=== PATIENT | male | born 1970 | race Caucasian/White ===

== ENCOUNTER 2017-10-04 00:21 | Inpatient (IN) | payer OTHER ==
[~2017-10-04] VITALS: Ht 193 cm; Wt 110.7 kg
--- NOTE | 2017-10-04 00:52 | EMERGENCY ROOM VISIT NOTE ---
History Report prepared by Jenelle: Yue Lock Under the Supervision of: Dr. José Luis Nur M.D. 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 Patient admitted to [facility] this evening for alcohol rehab. Admits he started getting in argument with staff about his nutritional needs s/p gastric sleeve 4 years ago. When they fed him egg noodles he threw up and this caused him to get quite upset. Admits he regularly vomits certain foods that his body "rejects." Previously lost about 200 lbs because of surgery. He notes that when he was upset he said some very unfortunate things. 302 petition clearly notes he made statements about killing himself and his . He denies any plan to do so nor any means. He further admits he did have argument with earlier in week but that she was one that drove him to [facility] for treatment. Admits he only drinks periodically without history of withdrawal, but drinks heavily when he does drink. He is on Cymbalta for chronic paresthesias pain, Percocet PRN for severe pain, and smokes marijuana for pain control somtimes. Denies overdose nor thoughts of killing self. Adamantly denies SI nor HI. Does eventually admit depression and follows with Psychiatry. Does admit he is very fearful of 302 as he would no longer have a job. 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 A total of 10 systems reviewed and were otherwise negative. Past Medical & Surgical Surgical Problems: (1) History of sleeve gastrectomy Family History No pertinent family history Social History Smoking Status: Never Smoker Alcohol Use: occasionally Drug Use: marijuana Marital Status: Housing Status: lives with significant other Occupation Status: employed Allergies Coded Allergies: No Known Allergies (Unverified , 10/04/17) Physical Exam Vital Signs Date Time Temp Pulse Resp B/P (MAP) Pulse Ox O2 Delivery O2 Flow Rate FiO2 10/04/17 06:20 84 20 170/84 96 Room Air 10/04/17 00:25 36.7 88 18 170/96 95 Room Air Physical Exam GENERAL: Patient is anxious appearing and in minimal distress. EYES: No scleral icterus, unremarkable pupils. ENT: Mucous membranes moist, no nasal congestion. NECK: No masses appreciated, no meningismus, trachea is midline. RESPIRATORY: No dyspnea. Clear to auscultation and equal bilaterally. No wheeze , no rhonchi. CARDIOVASCULAR: Regular rate and rhythm. No murmurs, rubs, gallops appreciated. GASTROINTESTINAL: Abdomen soft, nontender, no peritonitis. Bowel sounds positive. No masses appreciated. BACK: No midline tenderness, no CVA tenderness EXTREMITIES: Normal motion all extremities, no cyanosis, no edema. PSYCH: Patient modestly agitated, adamantly denying suicidal and homicidal ideations. Denies depression. Aware of what happened earlier and states he was just agitated. States he has no means or plan to follow up with what he said at [employer]. I talked to Alex who notes that the patient told [employer] employees that he was going to shoot himself in the mouth and kill his . Furthermore, they document clearly that he was agitated and upset during this. No act of furtherance was documented. NEUROLOGIC: Alert and oriented, no acute motor or sensory deficits, no focal weakness, cranial nerves grossly intact. SKIN: No rash, no jaundice, no diaphoresis. Medical Decision & Procedures Laboratory Results 10/04/17 02:06 Red Blood Count 5.05, Mean Corpuscular Volume 97.4, Mean Corpuscular Hemoglobin 33.7, Mean Corpuscular Hemoglobin Concent 34.6, Mean Platelet Volume 12.1, Neutrophils (%) (Auto) 64.6, Lymphocytes (%) (Auto) 21.7, Monocytes (%) (Auto) 12.1, Eosinophils (%) (Auto) 1.0, Basophils (%) (Auto) 0.3, Neutrophils # (Auto ) 4.45, Lymphocytes # (Auto) 1.49, Monocytes # (Auto) 0.83, Eosinophils # (Auto ) 0.07, Basophils # (Auto) 0.02 10/04/17 02:06 Test 10/04/17 02:06 White Blood Count 6.88 K/uL (4.8-10.8) Red Blood Count 5.05 M/uL (4.7-6.1) Hemoglobin 17.0 g/dL (14.0-18.0) Hematocrit 49.2 % (42-52) Mean Corpuscular Volume 97.4 fL (80-100) Mean Corpuscular Hemoglobin 33.7 pg (25-34) Mean Corpuscular Hemoglobin Concent 34.6 g/dl (32-36) Platelet Count 167 K/uL (130-400) Mean Platelet Volume 12.1 fL (7.4-10.4) Neutrophils (%) (Auto) 64.6 % Lymphocytes (%) (Auto) 21.7 % Monocytes (%) (Auto) 12.1 % Eosinophils (%) (Auto) 1.0 % Basophils (%) (Auto) 0.3 % Neutrophils # (Auto) 4.45 K/uL (1.4-6.5) Lymphocytes # (Auto) 1.49 K/uL (1.2-3.4) Monocytes # (Auto) 0.83 K/uL (0.11-0.59) Eosinophils # (Auto) 0.07 K/uL (0-0.5) Basophils # (Auto) 0.02 K/uL (0-0.2) RDW Standard Deviation 41.9 fL (36.4-46.3) RDW Coefficient of Variation 11.8 % (11.5-14.5) Immature Granulocyte % (Auto) 0.3 % Immature Granulocyte # (Auto) 0.02 K/uL (0.00-0.02) Anion Gap 6.0 mmol/L (3-11) Est Creatinine Clear Calc Drug Dose 144.7 ml/min Estimated GFR () 119.7 Estimated GFR (Non- 103.3 BUN/Creatinine Ratio 19.5 (10-20) Calcium Level 8.9 mg/dl (8.5-10.1) Total Bilirubin 0.5 mg/dl (0.2-1) Aspartate Amino Transf (AST/SGOT) 48 U/L (15-37) Alanine Aminotransferase (ALT/SGPT) 72 U/L (12-78) Alkaline Phosphatase 52 U/L (45-117) Total Protein 7.3 gm/dl (6.4-8.2) Albumin 3.7 gm/dl (3.4-5.0) Globulin 3.6 gm/dl (2.5-4.0) Albumin/Globulin Ratio 1.0 (0.9-2) Thyroid Stimulating Hormone (TSH) 1.220 uIu/ml (0.300-4.500) Salicylates Level < 1.7 mg/dl (2.8-20) Acetaminophen Level < 2 ug/ml (10-30) Ethyl Alcohol mg/dL < 3.0 mg/dl (0-3) Laboratory results as reviewed by me. ED Course 0034: The patient was evaluated in room A7. A complete history and physical exam was performed. 0230: I checked on the patient at this time. He admitted to previous marijuana use. 0425: I checked on the patient at this time. He is sleeping. Medical Decision Differential: Mood Disorder, Overdose, Infectious, Electrolyte Abnormality, Cardiac, Hepatic, Endocrine, Toxicologic, Neurologic, amongst other pathologies entertained. 47 yr old male who was just being admitted to [facility] for alcohol rehab who got in confrontation with staff and threatened to kill himself and his . He is anxious here but cooperative and after further discussion admitting to what he said. No act of furtherance and it doesn't sound like he has any way of shooting himself. He is medically clear though awaiting drug screen. Patient hadn't slept in almost 24 hours due to driving up here form [employer] along with being anxious about all of this, so when he finally fell asleep was very very somnolent. In effort to let him get some rest and be more clear headed we opted to let him sleep as long as he could. He was checked in on several times and sleeping soundly. He will be signed out to Dr Mejias pending mental health evaluation. Of note, there is 302 petition to keep him here but as he was so tired I did not feel that he could adequately given full Mental Health exam until he got some rest. Stable throughout the evening and when signed out to Dr Mejias. Medication Reconcilliation Current Medication List: was personally reviewed by me Blood Pressure Screening Patient's blood pressure: Elevated blood pressure Blood pressure disposition: Elevated BP felt to be situational Impression Primary Impression: Acute anxiety Scribe Attestation The scribe's documentation has been prepared under my direction and personally reviewed by me in its entirety. I confirm that the note above accurately reflects all work, treatment, procedures, and medical decision making performed by me. Departure Information Dispostion Still a Patient Patient Instructions [facility]
[2017-10-04 02:30] LABS: BASO % 0.3 %; BASO ABS # 0.02 K/uL (0-0.2); EOS ABS # 0.07 K/uL (0-0.5); HEMATOCRIT 49.2 % (42-52); IG# 0.02 K/uL (0.00-0.02); LYMPH % 21.7 %; LYMPH ABS # 1.49 K/uL (1.2-3.4); MEAN CELL VOLUME 97.4 fL (80-100); MEAN CORPUSCULAR HEMOGLOBIN 33.7 pg (25-34); MEAN CORPUSCULAR HGB CONC 34.6 g/dl (32-36); MEAN PLATELET VOLUME 12.1 fL (7.4-10.4); MONO % 12.1 %; MONO ABS # 0.83 K/uL (0.11-0.59); NEUT % 64.6 %; NEUT ABS # 4.45 K/uL (1.4-6.5); PLATELET COUNT 167 K/uL (130-400); RED CELL DISTRIBUTION WIDTH CV 11.8 % (11.5-14.5); RED CELL DISTRIBUTION WIDTH SD 41.9 fL (36.4-46.3); WHITE BLOOD COUNT 6.88 K/uL (4.8-10.8)
[2017-10-04 03:08] LABS: ALBUMIN 3.7 gm/dl (3.4-5.0); CALCIUM 8.9 mg/dl (8.5-10.1); CREATININE 0.86 mg/dl (0.60-1.40); POTASSIUM 3.7 mmol/L (3.5-5.1); TOTAL PROTEIN 7.3 gm/dl (6.4-8.2)
[2017-10-04] MEDS ORDERED: DULOXETINE HCL 60 MG CAP PO SCH (11:30)
[2017-10-04] MEDS ORDERED: OXYC-57 PO (13:10)
[2017-10-04] MEDS ORDERED: CYM/30 PO (13:10)
[2017-10-04] MEDS ORDERED: DULO60CA44 PO (13:10)
[2017-10-04] MEDS ORDERED: GABAPENTIN 250 MG/5 ML 470 ML BTL PO ONE (13:30)
--- NOTE | 2017-10-04 14:21 | EMERGENCY ROOM VISIT NOTE ---
ED Visit Note The patient was signed out to me awaiting mental health evaluation. Mental health evaluated the patient. The patient did have a 302 petition from [facility]. The patient was agreeable to coming in voluntarily. He was given his morning Cymbalta and a dose of Neurontin as recommended by psychiatry services. The patient will be admitted to 3 S.
[2017-10-04] MEDS ORDERED: SODIUM CHLORIDE 0.65% NA SOLN 45 ML (OCEAN) PRN (15:30)
[2017-10-04] MEDS ORDERED: hydrOXYzine HCL 25 MG TAB PO PRN ×2 (15:30)
[2017-10-04] MEDS ORDERED: LORAZEPAM 2 MG/ML 1 ML VIAL IV PRN (15:30)
[2017-10-04] MEDS ORDERED: BISMUTH SUBSALICYLATE PER ML OMNICELL CHARGE PO PRN (15:30)
[2017-10-04] MEDS ORDERED: ALUMINUM/MAGNESIUM SUSP 30 ML UDC PO PRN (15:30)
[2017-10-04] MEDS ORDERED: LORAZEPAM 1 MG TAB PO PRN (15:30)
[2017-10-04] MEDS ORDERED: MAGNESIUM HYDROXIDE SUSP 30 ML UDC PO PRN (15:30)
[2017-10-04] MEDS ORDERED: ACETAMINOPHEN 325 MG TAB PO PRN (15:30)
[2017-10-04] MEDS ORDERED: IBUPROFEN 800 MG TAB PO PRN (15:45)
[2017-10-04 16:27] VITALS: O2SAT 97
[2017-10-04 17:17] VITALS: BP 153/90; PULSE 73; TEMP 36.7
[2017-10-04 17:36] VITALS: BP 153/90; PULSE 73; TEMP 36.7; BMI 29.2
[2017-10-04 17:49] VITALS: Ht 193 cm; Wt 110.7 kg
[2017-10-04 20:22] VITALS: BP 137/87; PULSE 93; TEMP 36.7
[2017-10-04] MEDS ORDERED: GABAPENTIN 300 MG CAP PO ONE (21:00)
[2017-10-04] MEDS ORDERED: DULOXETINE (CYMBALTA) 30 MG CAP PO SCH (21:00)
[2017-10-04] MEDS: BOOST GLUCOSE CONTROL VANILLA PO SCH (21:46)
[2017-10-04] MEDS ORDERED: BOOST GLUCOSE CONTROL VANILLA PO SCH (22:00)
[2017-10-05 06:51] VITALS: BP_SYST 152; BP_SYST 156; BP_DIAS 103; BP_DIAS 94; PULSE 83; PULSE 84; TEMP 36.3
[2017-10-05] MEDS ORDERED: DULOXETINE HCL 60 MG CAP PO SCH (09:00)
[2017-10-05] MEDS: DULOXETINE HCL 60 MG CAP PO SCH (09:27)
[2017-10-05 09:49] VITALS: BP 146/95; TEMP 36.4
[2017-10-05] MEDS: BOOST GLUCOSE CONTROL VANILLA PO SCH ×3 (10:00→21:26)
--- NOTE | 2017-10-05 12:03 | Psychiatric History & Physical ---
History Date of Service Oct 05, 2017. Identifying Data Mario Alberto Singer is a 47-year-old male admitted on Oct 04, 2017 at 15:36 who currently lives in [place], [place] with his and 2 children. Mario Alberto Singer was admitted on a 201 voluntary commitment. Patient is admitted from home. The patient was brought to the ED by the police from [facility]. Information provided by the patient is considered to be reliable. Chief Complaint "I'm not bed. I'll try to keep it short, but it's not gonna be". History of Present Illness Mario Alberto Singer is a 47-year-old male admitted for inpatient mental health treatment after expressing suicidal and homicidal ideation during his intake process at an inpatient [facility]hab facility. Pt states he had been brought to the ED on a 302 by police after he had reported the comments in front of staff at the facility. Pt was ultimately voluntary for inpatient treatment and accepted on a 201. Pt is rather expressive at time of interview, focused on long-term events ultimately leading to turmoil with his . Pt reports difficulties with self-esteem and weight during his childhood. Eventually the patient began using alcohol and food as a coping mechanism. Pt states, "eventually, I had blown my stomach up to a record breaking size". Pt states, "I was drinking 3 cases of beer and eating lots of kinds of food all in one sitting. It was recommended that the patient receive gastric sleeve surgery to reduce the size of his stomach and prevent further medical issues. Pt states he was successful at losing 200lb after his surgery. He states, "the best thing that ever happened to me became the worst thing to happen to my . " Pt states he feels his had difficulty adjusting to the fact that that patient was bettering his life. Pt shares with this provider that his and several of her family members have bipolar disorder, making their behavior unpredictable, and impulsive during manic phases. Pt also reports a 26-year- old step-son as a significant stressor in their marriage, as the step-son is reported to have addiction and mental health diagnoses as well. Pt reports he had gone out for a drink the evening of 09/29 and was found by his , who apparently proceeded to "make me feel awful and talked down to me." Pt states, "this is her manic time of the year." Pt reports he decided to check himself in to D&A rehab following this incident as he felt he needed to address the issues concerning his . During the car ride and intake process , the patient states his continued to be "so self-righteous it started to make me gag a little bit." The patient eventually excused his , asking her to leave him and return home. Pt states, "I already wasn't digging the first handful of people I had to deal with there, then this lady started telling me I should leave my ." Pt states he eventually became frustrated, reporting to an employee, "I couldn't stand the thought of , having to bundle up my things and sent her off with them. That would make me want to stick a gun in my mouth, and then her's." Pt states police were called after this incident and the patient was brought to the ED on a 302. Past psychiatric history is limited at today's encounter due to the patient's preoccupation with the events leading to his hospitalization as well as his 's "mental health issues". Despite frequent redirection, the patient is unable to stay focused on his own symptoms for a significant period of time. Pt denies ongoing SI/HI as well as any access to guns. He states he loves his and does not feel as though he could leave her. Pt is currently taking a total of 90mg of duloxetine daily, originally prescribed for peripheral neuropathy. Pt feels this has also been helpful for his mood. During periods off of the duloxetine, the patient reported increased emotionality and anxiety. Pt is interested in continuing his medications, and expresses an interest in returning to rehab to "fix my problems willingly". Past Psychiatric History Current OP Treatment: no current treatment Prior OP Treatment: psychiatrist, therapist Prior Psych Hospitalizations: none Access to a Gun: No Suicide Attempts: No Allergies Allergies: Coded Allergies: No Known Allergies (Unverified , 10/04/17) Home Medications Scheduled Duloxetine Hcl (Cymbalta), 60 MG PO QAM Duloxetine Hcl (Cymbalta), 30 MG PO QPM Scheduled PRN Oxycodone/Acetaminophen 5MG/325MG (Percocet 5MG/325MG), 1 TABLET PO Q6H PRN for Pain Family History No pertinent family history Alcohol Use Alcohol Use In Past 12 Months: Yes (admits to 2-3x/weekly, reports 1L vodka daily) AUDIT Total Score: 18 Likely minimizing alcohol intake, reports last drink was 09/29 - reports patient drinks 1/2 a handle of vodka a day Smoking Use Smoking Status: Never Smoker Substance History Pt reports occasional use of marijuana for pain management. Denies other substance abuse; however, UDS positive for cocaine as well. 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 Examination Physical Examination A physical exam was performed in the ER prior to admission to the unit by Dr. José Luis Nur M.D.. I accept that physical as correct/medical clearance for the inpatient physical exam. Vital Signs Vital Signs Past 12 Hours Date Time Temp Pulse Resp B/P (MAP) Pulse Ox O2 Delivery O2 Flow Rate FiO2 10/05/17 09:49 36.4 18 146/95 10/05/17 06:51 36.3 84 18 156/94 83 152/103 Mental Examination During interview pt is: alert and oriented, cooperative Appearance: appropriately dressed, appropriately groomed, other (long, well- groomed hair) Eye contact is: good Motor behavior is: steady gait & station, no abnormal motor movements Speech: normal in rate, rhythm & volume (excessive, hyperverbal, but not rapid) Affect: irritable (when discussing his marriage) Mood is: other ("I'm not bad" - incongruent with irritable affect) Thought process: goal directed, clear, coherent, circumstantial (when relaying events leading up to admission) Thought content: preoccupation (with 's mental health issues), reality based without delusions Suicidal thought are: denied Homicidal thoughts are: denied Hallucinations: denies auditory, denies visual Cognition: memory grossly intact, attention grossly intact, language grossly intact Intelligence estimated to be: consistent with level of education Insight: fair Judgement: fair Impression / Recommendations Impression 47-year-old male admitted for inpatient mental health treatment due to suicidal/ homicidal statements made during his intake at [facility] rehab. Difficult to assess severity of depressive symptoms due to pt's preoccupation on his concerns for his . Pt reports generally decent ability to cope with stressors, stating his irritation built up, leading to his comments. Pt agreeable to continuing duloxetine 60mg qAM, 30mg @ 1600, as he feels it has been beneficial for his mood as well as his peripheral neuropathy. Reviewed gabapentin use for ETOH withdrawal, but continuing to decline doses due to "heaviness" felt on the medication in the past. Given statements made, patient should receive ongoing inpatient mental health treatment with plans to return to supervised inpatient rehab facility at discharge. Inventory Assets Strengths: intelligence, willingness for treatment Needs: assistance coping with marital stressors Risk Factors Assessment Male: Yes : Yes /single/: No Higher / Fall in social status: No Access to guns: No Health problems: Yes Mental Health Diagnoses: Yes Substance use disorders: Yes Previous attempt: No Family history of suicide: No Previous psychiatric stay: No Hopelessness: No Smoker: No Protective Factors Assessment : Yes Responsible for young children: Yes Employed: Yes Recommendations (1) Depression 10/05 - Continue duloxetine 60mg qAM, 30mg @ 1600 - Encourage participation in group and recreational therapies - Encourage development of healthy coping strategies - Encourage involvement of outpatient support in a family session - Discuss disposition, pt interested currently in inpatient rehab referral (2) Alcohol dependence 10/05 - AWSS protocol, gabapentin 100mg/100mg/300mg ordered - patient declining due to previous side effects - Unable to tolerate intervention to explore insight and willingness for change at today's encounter Dr. Chani Johnson has personally been involved in the review of the above case and development of recommendations. CPT Code Initial Hospital Care: [id number]
[2017-10-05 13:14] VITALS: BP 169/89; PULSE 101; TEMP 36.8
[2017-10-05] MEDS: GABAPENTIN 100 MG CAP PO SCH (13:53)
[2017-10-05] MEDS: DULOXETINE (CYMBALTA) 30 MG CAP PO SCH (16:09)
[2017-10-05 17:05] VITALS: BP 162/103; PULSE 86; TEMP 36.6
[2017-10-05 21:20] VITALS: BP 167/101; PULSE 99; TEMP 36.6
[2017-10-05] MEDS ORDERED: GABAPENTIN 300 MG CAP PO SCH (22:00)
[2017-10-06] MEDS: GABAPENTIN 100 MG CAP PO SCH (06:49)
[2017-10-06 06:58] VITALS: BP_SYST 144; BP_SYST 155; BP_DIAS 82; BP_DIAS 83; PULSE 71; PULSE 81; TEMP 36.6
[2017-10-06] MEDS: BOOST GLUCOSE CONTROL VANILLA PO SCH ×2 (08:51→14:03)
[2017-10-06] MEDS: DULOXETINE HCL 60 MG CAP PO SCH (08:52)
--- NOTE | 2017-10-06 11:55 | Psychiatric Progress Notes ---
Progress Note Date of Service Oct 06, 2017. Interval History Mario Alberto Singer is a 47-year-old male admitted on Oct 04, 2017 at 15:36 who currently lives in [place], [place] with his and 2 children. Mario Alberto Singer was admitted on a 201 voluntary commitment for suicidal and homicidal statements he made at rehab. [facility] Chief Complaint "Doing some soul searching ". Subjective Patient was seen & assessed interval progress reviewed with Treatment Team. Staff reports the patient has been attending and participating in groups, interacting appropriately with staff and peers, and eating and sleeping well. He has been denying alcohol withdrawal symptoms, refusing the gabapentin, and has not required Lorazepam. He spoke with a friend last evening, who also spoke with staff and scheduled a family meeting with several friends and coworkers for this afternoon. On my assessment, he states that he does not have thoughts about harming himself or anyone else, and that when he made the statements at [facility], he was being sarcastic. He again relays the events that led to his seeking inpatient substance abuse treatment, stating that he did it for his after they got into an argument. He says that he "had a drink, and she snapped and told me she's leaving and taking the kids... I want to stop drinking the way I stopped eating, I'm doing this for my , she's insane." He says that going to [facility] rehab was "a very emotional process , I panicked," and states that when they did not have dietary options that he was expecting, he became very upset. He states "all I ever wanted to be was thin, I got gastric sleeve and lost 200 pounds in 7 months, and my went off the deep end." He adamantly denies any thoughts of harming himself or anyone else, states "I don't own a gun, I'm an animal lover, I'd never hurt anyone." He is unsure if he wants to return to [facility], or possibly explore another rehab option in the [place] area. Review of Systems Denies shakes, sweats, nausea, vomiting, diarrhea, constipation. Sleep Information Total Hours of Sleep: 8.25 Meal Information Percent of Breakfast Consumed: 100 Percent of Dinner Consumed: 50 Mental Status Exam During interview pt is: alert and oriented, cooperative Appearance: appropriately dressed, appropriately groomed (Long curly hair that appears freshly washed), other (long, well-groomed hair) Eye contact is: good Motor behavior is: steady gait & station, no abnormal motor movements Speech: normal in rate, rhythm & volume (Talkative, dramatic style of speech) Affect: other (Mildly expansive) Mood is: anxious Thought process: circumstantial Thought content: preoccupation (With 's psychiatric issues), reality based without delusions Suicidal thought are: denied Homicidal thoughts are: denied Hallucinations: denies auditory, denies visual Cognition: memory grossly intact, attention grossly intact, language grossly intact Intelligence estimated to be: consistent with level of education Insight: fair Judgement: fair Impression 47-year-old male admitted for inpatient mental health treatment after making suicidal and homicidal statements made [facility]. He states that he was being sarcastic, and has consistently denied thoughts of harming himself or others here. He has declined a family meeting with his , but has multiple friends and coworkers coming in for a meeting this afternoon. He was continued on his home dose of duloxetine, which was started for peripheral neuropathy, but has also been helpful for mood. He is actively participating in treatment here, and is appropriate for return to rehab at this time. Plan (1) Depression 10/05 - Continue duloxetine 60mg qAM, 30mg @ 1600 - Encourage participation in group and recreational therapies - Encourage development of healthy coping strategies - Encourage involvement of outpatient support in a family session - Discuss disposition, pt interested currently in inpatient rehab referral 10/06 -Mood stable, denying thoughts of harming himself or others, interacting appropriately with others, and tending to ADLs. Patient is stable for return to rehab. -Family meeting with friends today. (2) Alcohol dependence 10/05 - AWSS protocol, gabapentin 100mg/100mg/300mg ordered - patient declining due to previous side effects - Unable to tolerate intervention to explore insight and willingness for change at today's encounter Discharge / Aftercare Planning Primary Care Physician: Name: did not mention any Therapist: [facility]: Name: none Visit Code E&M Code: 27350 Inventory Assets Strengths: intelligence, willingness for treatment Needs: assistance coping with marital stressors Risk Factors Assessment Male: Yes : Yes /single/: No Higher / Fall in social status: No Health problems: Yes Mental Health Diagnoses: Yes Substance use disorders: Yes Previous attempt: No Family history of suicide: No Previous psychiatric stay: No Hopelessness: No Smoker: No Protective Factors Assessment : Yes Responsible for young children: Yes Employed: Yes Data Vital Signs Last 24 Hrs: Date Time Temp Pulse Resp B/P (MAP) Pulse Ox O2 Delivery O2 Flow Rate FiO2 10/06/17 06:58 36.6 71 18 155/82 81 144/83 10/05/17 21:20 36.6 99 16 167/101 10/05/17 17:05 36.6 86 16 162/103 10/05/17 13:14 36.8 101 18 169/89 Meds Administered Last 24 Hrs: Meds Administered (Past 24Hrs) Medications (Trade) Dose Ordered Sig/Adelita Route Start Time Stop Time Status Last Admin Dose Admin Gabapentin (Neurontin) 300 mg ONE ONCE PO 10/04/17 13:30 10/04/17 13:31 DC 10/04/17 13:30 300 MG Hydroxyzine HCl (Vistaril Tab) 50 mg HSZ PRN PO 10/04/17 15:30 11/03/17 15:29 10/05/17 00:50 50 MG Duloxetine HCl (Cymbalta Cap) 30 mg QPM PO 10/04/17 21:00 10/05/17 08:42 DC 10/04/17 21:42 30 MG Enteral Nutritional Formula (Boost Glucose Control) 1 can TID PO 10/04/17 22:00 11/03/17 21:59 10/06/17 08:51 1 CAN Duloxetine HCl (Cymbalta Cap) 60 mg QAM PO 10/05/17 09:00 11/04/17 08:59 10/06/17 08:52 60 MG Duloxetine HCl (Cymbalta Cap) 30 mg QD@16 PO 10/05/17 16:00 11/03/17 20:59 10/05/17 16:09 30 MG
--- NOTE | 2017-10-06 12:59 | Discharge Instructions ---
Discharge Information Report Includes Report will include the: Discharge Instructions & Summary Admission Admission Date / Time: Oct 04, 2017 at 15:36 Reason for Admission: Depression Discharge Discharge Diagnosis / Problem: Depression, alcohol use disorder Condition at Discharge: Fair Discharge Goals Goal(s): Improve function, Improve disease control, Learn about illness, Therapeutic intervention, Specific goals (transfer to dual diagnosis facility) Activity Recommendations Activity Limitations: per Instructions/Follow-up section . Instructions / Follow-Up Instructions / Follow-Up . SPECIAL CARE INSTRUCTIONS: 1. Follow through with your scheduled aftercare appointments. If unable to keep an appointment, please call to reschedule. 2. Take your medication only as prescribed. Medication should not be changed or stopped without the approval of your doctor. In the event of worsening symptoms or concerns about side effects, contact your doctor immediately. 3. Utilize new healthy coping skills, anger management skills, and stress management skills learned during your hospitalization. Journal feelings and process them with a support person. Identify stressors or situations that may result in relapse, deterioration or inappropriate behaviors and develop a plan to deal with those issues. 4. If your coping skills are ineffective and you are in crisis, contact your outpatient providers for direction. If unable to reach your providers, please call the CAN HELP LINE AT or go to the closest Emergency Room. 5. Avoid alcohol and un-prescribed drugs. 6. You have been provided with the Mental Health Advance Directives Pamphlet for your review. AFTERCARE APPOINTMENTS: * Please call your insurance company prior to your scheduled appointment to confirm your aftercare providers are covered. Take your insurance information to your appointments. . Discharge / Aftercare Planning Therapist: Name Of Therapist: [facility] [employer] Travel Counselor: Name: none . Follow-Up Care Plan for Follow-Up Care: Transfer to [facility] for dual diagnosis treatment. Current Hospital Diet Patient's current hospital diet: Regular Diet Discharge Diet Recommended Diet: Regular Diet Procedures Procedures Performed: No Pending Studies Pending Studies at Discharge: No Medical Emergencies . Who to Call and When: Medical Emergencies: For questions or emergencies related to your hospital stay, please contact the Inpatient Behavioral Health Unit at [phone]. A gate services supervisor is on-call 23/09 for the Behavioral Health Unit for emergencies At any time you feel your situation is an emergency, you may also call 911 immediately. . Non-Emergent Contact Non-Emergency issues call your: Primary Care Provider, Therapist Past History Medical & Surgical History: (1) History of sleeve gastrectomy Advance Directives Existing Advance Directive: No Do You Have an Existing Mental: No Existing Living Will: No Existing Power of Fast Food Shift Supervisor: No Advance Directives Info Given: To Pt/S.O. Advance Directives Reason: Declines as Mental Health Visit. Discharge Summary Admission HPI Per the Admitting provider: Mario Alberto Singer is a 47-year-old male admitted for inpatient mental health treatment after expressing suicidal and homicidal ideation during his intake process at an inpatient [facility]hab facility. Pt states he had been brought to the ED on a 302 by police after he had reported the comments in front of staff at the facility. Pt was ultimately voluntary for inpatient treatment and accepted on a 201. Pt is rather expressive at time of interview, focused on long-term events ultimately leading to turmoil with his . Pt reports difficulties with self-esteem and weight during his childhood. Eventually the patient began using alcohol and food as a coping mechanism. Pt states, "eventually, I had blown my stomach up to a record breaking size". Pt states, "I was drinking 3 cases of beer and eating lots of kinds of food all in one sitting. It was recommended that the patient receive gastric sleeve surgery to reduce the size of his stomach and prevent further medical issues. Pt states he was successful at losing 200lb after his surgery. He states, "the best thing that ever happened to me became the worst thing to happen to my . " Pt states he feels his had difficulty adjusting to the fact that that patient was bettering his life. Pt shares with this provider that his and several of her family members have bipolar disorder, making their behavior unpredictable, and impulsive during manic phases. Pt also reports a 26-year- old step-son as a significant stressor in their marriage, as the step-son is reported to have addiction and mental health diagnoses as well. Pt reports he had gone out for a drink the evening of 09/29 and was found by his , who apparently proceeded to "make me feel awful and talked down to me." Pt states, "this is her manic time of the year." Pt reports he decided to check himself in to D&A rehab following this incident as he felt he needed to address the issues concerning his . During the car ride and intake process , the patient states his continued to be "so self-righteous it started to make me gag a little bit." The patient eventually excused his , asking her to leave him and return home. Pt states, "I already wasn't digging the first handful of people I had to deal with there, then this lady started telling me I should leave my ." Pt states he eventually became frustrated, reporting to an employee, "I couldn't stand the thought of , having to bundle up my things and sent her off with them. That would make me want to stick a gun in my mouth, and then her's." Pt states police were called after this incident and the patient was brought to the ED on a 302. Past psychiatric history is limited at today's encounter due to the patient's preoccupation with the events leading to his hospitalization as well as his 's "mental health issues". Despite frequent redirection, the patient is unable to stay focused on his own symptoms for a significant period of time. Pt denies ongoing SI/HI as well as any access to guns. He states he loves his and does not feel as though he could leave her. Pt is currently taking a total of 90mg of duloxetine daily, originally prescribed for peripheral neuropathy. Pt feels this has also been helpful for his mood. During periods off of the duloxetine, the patient reported increased emotionality and anxiety. Pt is interested in continuing his medications, and expresses an interest in returning to rehab to "fix my problems willingly". Hospital Course (1) Depression 10/05 - Continue duloxetine 60mg qAM, 30mg @ 1600 - Encourage participation in group and recreational therapies - Encourage development of healthy coping strategies - Encourage involvement of outpatient support in a family session - Discuss disposition, pt interested currently in inpatient rehab referral 10/06 -Mood stable, denying thoughts of harming himself or others, interacting appropriately with others, and tending to ADLs. Patient is stable for return to rehab. -Family meeting with friends today. -Patient requested referral to [facility] [place], [place], and was accepted. Friends will transport him. He is psychiatrically stable for transfer. -Send records to PCP, Mel MEAD in [facility] who prescribes monthly opiate pain meds, his outpatient therapist for coordination of care. (2) Alcohol dependence 10/05 - [facility] protocol, gabapentin 100mg/100mg/300mg ordered - patient declining due to previous side effects - Unable to tolerate intervention to explore insight and willingness for change at today's encounter Risk Factors Assessment Male: Yes : Yes /single/: No Higher / Fall in social status: No Health problems: Yes Mental Health Diagnoses: Yes Substance use disorders: Yes Previous attempt: No Family history of suicide: No Previous psychiatric stay: No Hopelessness: No Smoker: No Protective Factors Assessment : Yes Responsible for young children: Yes Employed: Yes Absence of risk factors above: Yes (Risk factors have been mitigated by admission to the inpatient unit, assessment for mood disorder and risk of harm to himself or others, involvement in groups and therapy on the unit, working on healthy coping skills and a discharge safety plan, meeting with his friends/ support network, and referral to his chosen dual diagnosis treatment center for ongoing inpatient treatment. He has consistently denied SI and HI here, has not been aggressive or threatening towards others, and has been able to interact appropriately with staff and peers. He has maintained that his suicidal and homicidal statements were sarcastic and in the context of an argument with his and frustration with staff at [facility] rehab, and that he never intended to harm himself or anyone else. He denies any history of suicide attempts or aggression towards others. He is requesting discharge, has been accepted at a dual diagnosis treatment facility, and will be transported there by his friends. He is no longer at acute risk of harm to himself or others, so can be discharged to pursue dual diagnosis treatment at this time.) Day of Discharge Assessment Day of discharge assessment: The patient was seen & assessed interval progress reviewed with Treatment Team. Staff reports the patient has been attending and participating in groups, interacting appropriately with staff and peers, and eating and sleeping well. He has been denying alcohol withdrawal symptoms, refusing the gabapentin, and has not required Lorazepam. He spoke with a friend last evening, who also spoke with staff and scheduled a family meeting with several friends and coworkers for this afternoon. On my assessment, he states that he does not have thoughts about harming himself or anyone else, and that when he made the statements at [facility], he was being sarcastic. He again relays the events that led to his seeking inpatient substance abuse treatment, stating that he did it for his after they got into an argument. He says that he "had a drink, and she snapped and told me she's leaving and taking the kids... I want to stop drinking the way I stopped eating, I'm doing this for my , she's insane." He says that going to [facility] rehab was "a very emotional process , I panicked," and states that when they did not have dietary options that he was expecting, he became very upset. He states "all I ever wanted to be was thin, I got gastric sleeve and lost 200 pounds in 7 months, and my went off the deep end." He adamantly denies any thoughts of harming himself or anyone else, states "I don't own a gun, I'm an animal lover, I'd never hurt anyone." He is unsure if he wants to return to [facility], or possibly explore another rehab option in the [place] area. After talking with his friends, he stated he wanted to go to [facility] in [place], [place], records were sent, and he was accepted with a bed date today. Friends came to the hospital for a family meeting with the foster care social worker, and he was discharged to their care for transport to [facility]. MSE: Well-nourished, well-developed male, casually dressed and adequately groomed. Seated in no acute distress, with good eye contact. Gait and station are normal, some dramatic and theatrical movements while talking and telling stories. Mood is "fine," and affect is mildly expansive, but appropriate, reactive, and congruent. Speech is spontaneous, normal rate, loud volume. Thoughts are circumstantial. Denies SI, HI, AVH, and paranoia. No delusions are evident. Memory, attention, and language are grossly intact. Level of intelligence estimated to be average. Insight and judgment are fair. Laboratory Test 10/04/17 02:06 10/04/17 09:55 White Blood Count 6.88 Red Blood Count 5.05 Hemoglobin 17.0 Hematocrit 49.2 Mean Corpuscular Volume 97.4 Mean Corpuscular Hemoglobin 33.7 Mean Corpuscular Hemoglobin Concent 34.6 Platelet Count 167 Mean Platelet Volume 12.1 Neutrophils (%) (Auto) 64.6 Lymphocytes (%) (Auto) 21.7 Monocytes (%) (Auto) 12.1 Eosinophils (%) (Auto) 1.0 Basophils (%) (Auto) 0.3 Neutrophils # (Auto) 4.45 Lymphocytes # (Auto) 1.49 Monocytes # (Auto) 0.83 Eosinophils # (Auto) 0.07 Basophils # (Auto) 0.02 RDW Standard Deviation 41.9 RDW Coefficient of Variation 11.8 Immature Granulocyte % (Auto) 0.3 Immature Granulocyte # (Auto) 0.02 Sodium Level 139 Potassium Level 3.7 Chloride Level 105 Carbon Dioxide Level 28 Anion Gap 6.0 Blood Urea Nitrogen 17 Creatinine 0.86 Est Creatinine Clear Calc Drug Dose 144.7 Estimated GFR () 119.7 Estimated GFR (Non- 103.3 BUN/Creatinine Ratio 19.5 Random Glucose 114 Calcium Level 8.9 Total Bilirubin 0.5 Aspartate Amino Transferase (AST) 48 Alanine Aminotransferase (ALT) 72 Alkaline Phosphatase 52 Total Protein 7.3 Albumin 3.7 Globulin 3.6 Albumin/Globulin Ratio 1.0 Thyroid Stimulating Hormone (TSH) 1.220 Salicylates Level < 1.7 Acetaminophen Level < 2 Ethyl Alcohol mg/dL < 3.0 Urine Color YELLOW Urine Appearance CLEAR Urine pH 6.5 Urine Specific [place] 1.020 Urine Protein NEG Urine Glucose (UA) NEG Urine Ketones NEG Urine Occult Blood NEG Urine Nitrite NEG Urine Bilirubin NEG Urine Urobilinogen NEG Urine Leukocyte Esterase NEG Urine RBC 0-4 Urine WBC 0 Urine Epithelial Cells 0-5 Urine Bacteria NEG Urine Opiates Screen NEG Urine Methadone, Qualitative NEG Urine Barbiturates NEG Urine Phencyclidine (PCP) Level NEG Ur Amphetamine/Methamphetamine NEG MDMA (Ecstasy) Screen NEG Urine Benzodiazepines Screen NEG Urine Cocaine Confirmation Pending Urine Cocaine Metabolite POS Urine Marijuana (THC) POS Urine Marijuana (THC Carboxy Acid) Pending Total Time Total Time Spent (min): Greater than 30 minutes Total Time Included: examination of the patient, discharge planning, medication reconciliation Transition of Care Transition of care record: was reviewed with the patient Tobacco Cessation at Discharge Smoking Status: Never Smoker FDA approved Prescription: non-smoker
[2017-10-06 13:23] VITALS: BP 144/83; PULSE 81; TEMP 36.6; O2SAT 97
[2017-10-06] MEDS: DULOXETINE (CYMBALTA) 30 MG CAP PO SCH (14:15)
== END 2017-10-06 14:25 | disposition other institution (70) | DRG 881 ==
LOC: C.EDB 00:23 → C.MHU 15:36 → ENRESERV 15:48 → CANBEDREQ 16:00
PROVIDERS: ADMIT Psychiatry & Neurology Child & Adolescent Psychiatry; ATTEND Psychiatry & Neurology Child & Adolescent Psychiatry
DX: F32.9 Major depressive disorder, single episode, unspecified (principal); F10.20 Alcohol dependence, uncomplicated; I10 Essential (primary) hypertension; Z98.84 Bariatric surgery status